=== PATIENT | female | born 1990 | race Caucasian/White ===

== ENCOUNTER 2017-08-26 14:12 | Outpatient (CLI) | payer BC ==
[~2017-08-26] VITALS: Ht 167.6 cm; Wt 77.7 kg
[2017-08-26 14:23] VITALS: BP 130/85; PULSE 67; TEMP 97.7
[2017-08-26] MEDS ORDERED: PRENATAL PO (14:38)
[2017-08-26] MEDS ORDERED: TUMS EXTRA STR750 MG PO (14:39)
[2017-08-26] MEDS ORDERED: PRILOTC PO (14:40)
[2017-08-27] MEDS ORDERED: PERCOCET 325 MG1 TA2 PO (07:54)
[2017-08-27] MEDS ORDERED: MOTRIN 800800 MG/TAB PO (07:54)
== END 2017-08-26 15:50 | disposition home or self-care (01) ==
LOC: LDRO 14:12
DX: O62.9 Abnormality of forces of labor, unspecified (principal); Z3A.40 40 weeks gestation of pregnancy

== ENCOUNTER 2017-08-26 21:35 | Inpatient (IN) | payer BC ==
[~2017-08-26] VITALS: Ht 167.6 cm; Wt 77.7 kg
[2017-08-26] VITALS (10 sets, daily range): BP systolic 121–148; BP diastolic 83–99; PULSE 58–68; TEMP 98.1
[~2017-08-26 21:35] MED LIST: PRENATAL PO; PRILOTC PO; TUMS EXTRA STR750 MG PO
[2017-08-26 22:39] LABS: BASO % 0.2 % (0.0-2.0); EOS # 0.1 (0.0-0.7); GRAN # 8.9 (1.4-6.5); GRAN % 70.8 % (42.2-75.2); HEMATOCRIT 38.4 % (37.0-47.0); HEMOGLOBIN 13.5 g/dl (12.5-16.0); LYMPH # 2.5 (1.2-3.4); LYMPH % 19.4 % (20.0-51.0); MEAN CELL VOLUME 92 fl (80.0-100.0); MEAN CORPUSCULAR HEMOGLOBIN 33 pg (27.0-31.0); MEAN CORPUSCULAR HGB CONC 35 g/dl (33.0-37.0); MEAN PLATELET VOLUME 11.2 fl (7.4-10.4); MONO % 8.2 % (1.7-9.3); PLATELET COUNT 212 K/mm3 (130-400); RED BLOOD COUNT 4.16 M/mm3 (4.10-5.30); REDCELL DISTRIBUTION WIDTH-CV 12.3 % (11.5-14.5)
[2017-08-27] VITALS (41 sets, daily range): BP systolic 110–149; BP diastolic 60–92; PULSE 55–100; TEMP 97.6–98.6
[2017-08-27] MEDS ORDERED: PERCOCET 325 MG1 TA2 PO (07:54)
[2017-08-27] MEDS ORDERED: MOTRIN 800800 MG/TAB PO (07:54)
[2017-08-28] VITALS: BP 136/88; PULSE 56
[2017-08-28 04:00] VITALS: BP 125/72; PULSE 72; TEMP 97.6
[2017-08-28 07:20] VITALS: BP 125/70; PULSE 59
[2017-08-28 16:41] VITALS: BP 149/86; PULSE 76
[2017-08-28 22:00] VITALS: BP 128/82; PULSE 68; TEMP 97.9
[2017-08-29 07:00] VITALS: BP 129/73; PULSE 59; TEMP 98.1
== END 2017-08-29 10:25 | disposition home or self-care (01) | DRG 775 ==
LOC: LDRO 21:35 → LDR 21:42 → OB 21:42
PROVIDERS: Obstetrics & Gynecology
PROC: 10E0XZZ Delivery of Products of Conception, External Approach (ICD-10-PCS; principal; 2017-08-27)
PROC: 0W8NXZZ Division of Female Perineum, External Approach (ICD-10-PCS; 2017-08-27)
PROC: 0HQ9XZZ Repair Perineum Skin, External Approach (ICD-10-PCS; 2017-08-27)
DX: O76 Abnormality in fetal heart rate and rhythm complicating labor and delivery (principal); Z3A.40 40 weeks gestation of pregnancy; Z37.0 Single live birth; O71.82 Other specified trauma to perineum and vulva
CPT/HCPCS: J2590; J2795; J7120

== ENCOUNTER 2019-06-26 12:11 | Inpatient (IN) | payer BC ==
[2019-06-26] VITALS (15 sets, daily range): BP systolic 117–142; BP diastolic 56–97; PULSE 53–74; TEMP 97.6–98.8
[~2019-06-26] VITALS: Ht 167.6 cm; Wt 74.1 kg
[~2019-06-26 12:11] MED LIST changes: +MOTRIN 800800 MG/TAB PO; +PERCOCET 325 MG1 TA2 PO
--- NOTE | 2019-06-26 12:15 | NUR ---
PATIENT TO LR 4 COMPLAINS OF CONTRACTIONS. IN GOWN. ON EFM, VITALS OBTAINED, CONSENTS SIGNED, ASSEMENT COMPLETE, SVE PREFORMED. DR LAZARO ON UNIT. AT BEDSIDE
[2019-06-26 14:13] LABS: BASO % 0.2 % (0.0-2.0); EOS # 0.1 (0.0-0.7); EOS % 0.9 % (0-4.0); GRAN # 7.2 (1.4-6.5); GRAN % 75.2 % (42.2-75.2); HEMATOCRIT 38.2 % (37.0-47.0); HEMOGLOBIN 13.1 g/dl (12.5-16.0); LYMPH # 1.6 (1.2-3.4); LYMPH % 16.8 % (20.0-51.0); MEAN CELL VOLUME 95 fl (80.0-100.0); MEAN CORPUSCULAR HEMOGLOBIN 33 pg (27.0-31.0); MEAN CORPUSCULAR HGB CONC 34 g/dl (33.0-37.0); MEAN PLATELET VOLUME 10.8 fl (7.4-10.4); MONO # 0.6 (0.1-0.6); MONO % 6.5 % (1.7-9.3); PLATELET COUNT 203 K/mm3 (130-400); RED BLOOD COUNT 4.02 M/mm3 (4.10-5.30); REDCELL DISTRIBUTION WIDTH-CV 12.2 % (11.5-14.5)
--- NOTE | 2019-06-26 15:05 | NUR ---
This assumes care of patient. Patient resting in bed and no needs at this time. 1325: Patient on birthing ball and difficulty tracing FHR due to position and monitor adjusted. 1345: Patient continues to sit on birthing ball and breathing through contractions. FHR tracing variable decelerations with spontaneous return to baseline. 1400: Patient requesting epidural and LSaryIsh TYPING CHECKER notified. 1420: Dr. Garland at nurses station and reviews FHR strip at this time and no new orders given. 1433: Patient sittin on edge of bed and LSaryIsh TYPING CHECKER at bedside for placement of epidural. 1443: Test dose given and patient tolerates well. 1445: Patient repositioned and plan of care discussed. 1500: Patient having pain on left side, patient left lateral and L.Ish TYPING CHECKER at bedside. FHR tracing recurrent variable decelerations, with spontaneous return to baseline. 1505: Patient feeling vaginal pressure. SVE:8-9/90/[address] Garland called and notified. Patient states feeling more pressure. Elysia TYPING CHECKER at bedside dosing patient as needed. 1515:SVE 9-10/100/[address] Garland called for delivery. 1528: Dr. Garland at bedside and FHR tracing variable recurrent decelerations. SVE per physician-10/100/+2 Patient set up for vaginal delivery/bed taken apart/pericare done. 1532: Patient begins to push with contractions per Dr. Garland's orders. 1534: Patient continues to push and Dr. Garland cut episiotomy at this time and patient tolerates well. 1536: Spontaneous vaginal delivery of viable baby girl-head followed by body. Infant bulbed syringed and to patient abdomen where Dawna SHARMA assumes care of infant. Cord clamped by physician and cut by FOB. Cord blood obtained. 1541: Spontaneous vaginal delivery of placenta and pitocin bolus started at 333mu/hr. Dr. Garland begins to repair laceration. Fundal massage done/bleeding WNL/firm Pericare done and patient repositioned. Ice pack to perineum and plan of care discussed.
--- NOTE | 2019-06-26 18:00 | NUR ---
Patient ambulates to bathroom with standby assist. Voids, new gown/underwear/pad on. Patient to wheelchair and to . whitboard gone over and plan of care discussed
[2019-06-27] VITALS: BP 128/72; PULSE 68; TEMP 98.7
[2019-06-27 03:36] VITALS: BP 119/80; PULSE 60; TEMP 97.8
[2019-06-27 07:50] VITALS: BP 121/83; PULSE 53; TEMP 98.1
[2019-06-27] MEDS ORDERED: MOTRIN 800800 MG/TAB PO (08:58)
--- NOTE | 2019-06-27 11:17 | NUR ---
Initial visit; Patient thanked Team Assembler for offering congratulations and God's blessings for the her daugter. Team Assembler thanked Mom for choosing [place].
[2019-06-27 22:20] VITALS: BP 119/67; PULSE 52; TEMP 98.8
[2019-06-28 09:10] VITALS: BP 132/77; PULSE 61; TEMP 97.7
--- NOTE | 2019-06-28 11:37 | NUR ---
Initial visit; Parents thanked Washer Engineer Helper for offering congratulations and God's blessings for the of their daughter. Washer Engineer Helper thanked them for choosing [place] [facility].
== END 2019-06-28 15:00 | disposition home or self-care (01) | DRG 807 ==
LOC: LDRO 12:11 → OB 12:36 → LDR 12:36 → OB 18:10
PROVIDERS: Obstetrics & Gynecology; ADMIT Obstetrics & Gynecology
PROC: 10E0XZZ Delivery of Products of Conception, External Approach (ICD-10-PCS; principal; 2019-06-26)
PROC: 0W8NXZZ Division of Female Perineum, External Approach (ICD-10-PCS; 2019-06-26)
DX: O99.824 Streptococcus B carrier state complicating childbirth (principal); Z37.0 Single live birth; Z3A.40 40 weeks gestation of pregnancy
CPT/HCPCS: J2540; J2590; J7120